=== PATIENT | female | born 1950 | race Caucasian/White ===

== ENCOUNTER 2019-01-14 08:40 | Inpatient (IN) | payer OTHER ==
[2019-01-14 09:07] VITALS: BMI 23.8
--- NOTE | 2019-01-14 09:48 | HP ---
COWS - Scale Resting Pulse: 0= [place] 80 or Below Sweatin= Chills/Flushing Restless Observation: 1= Difficult to Sit Still Pupil Size: 0= Normal to Room Light Bone or Joint Aches: 2= Severe Diffuse Aches Runny Nose/ Eye Tearin= Nasal Congestion GI Upset > 30mins: 2= Nausea/Diarrhea Tremor Observation: 2= Slight Tremor Visible Yawning Observation: 1= 1-2x During Session Anxiety or Irritability: 2=Irritable/Anxious Goose Flesh Skin: 0=Smooth Skin COWS Score: 12 CIWA Score - Admission Criteria OASAS Guidelines: Admission for Medically Managed Detox: Requires at least one of the followin. CIWA greater than 12 2. Seizures within the past 24 hours 3. Delirium tremens within the past 24 hours 4. Hallucinations within the past 24 hours 5. Acute intervention needed for co occurring medical disorder 6. Acute intervention needed for co occurring psychiatric disorder 7. Severe withdrawal that cannot be handled at a lower level of care (continued vomiting, continued diarrhea, abnormal vital signs) requiring intravenous medication and/or fluids 8. Admitting History and Physical - Smoking History Smoking history: Current every day smoker Have you smoked in the past 12 months: Yes Aproximately how many cigarettes per day: 10 Admission ROS S - HPI Chief Complaint: I need help Allergies/Adverse Reactions: Allergies Allergy/AdvReac Type Severity Reaction Status Date / Time Penicillins Allergy Severe Verified 01/12/19 17:23 Pencillin AdvReac Rash Uncoded 01/14/19 08:58 History of Present Illness: 68 year old woman with heroin use presents for detox. Patient presented for detox at this facility 2 days ago but did not meet criteria for admission. As per patient, she could not handle the withdrawal symptoms after she got home so she resumed using. She has declared the intention of correction abstinence and wants to go to rehab. Patient reports previous methadone maintenance several years ago but got off because she didn't want to be on methadone any longer. Her longest period of sobriety is 10 years, relapsed last year, denies ever overdosing. Exam Limitations: No Limitations - Ebola screening Have you traveled outside of the country in the last 21 days: No Have you had contact with anyone from an Ebola affected area: No Have you been sick,other than usual withdrawal symptoms: No Do you have a fever: No - Review of Systems Constitutional: Chills, Loss of Appetite, Changes in sleep (chronic insomnia), Unintentional Wgt. Loss (10lbs weight loss over the past few months) EENT: reports: Nose Congestion, Difficulty Swallowing (sometimes) Respiratory: reports: No Symptoms reported Cardiac: reports: Lightheadedness (sometimes), Palpitations (sometimes) GI: reports: Poor Appetite, Abdominal cramping : reports: No Symptoms Reported Musculoskeletal: reports: Back Pain, Joint Pain (OA related), Muscle Pain Integumentary: reports: Bruising (due to anticoagulation use) Neuro: reports: Numbness, Tremors Endocrine: reports: No Symptoms Reported Hematology: reports: Easy Bruising Psychiatric: reports: Anxious, Depressed Other Systems: Reviewed and Negative Patient History - Patient Medical History Hx Anemia: No Hx Asthma: No Hx Chronic Obstructive Pulmonary Disease (COPD): No Hx Cancer: Yes (breast cancer 1992 (s/p lumpectomy, radiation)) Hx Cardiac Disorders: Yes (PR, s/p cardiac stents July 2017) Hx Congestive Heart Failure: No Hx Hypertension: Yes Hx Hypercholesterolemia: Yes Hx Pacemaker: No HX Cerebrovascular Accident: Yes (TIA) Hx Seizures: No Hx Dementia: No Hx Diabetes: No Hx Gastrointestinal Disorders: No Hx Liver Disease: No Hx Genitourinary Disorders: No Hx Sexually Transmitted Disorders: No Hx Renal Disease (ESRD): No Hx Thyroid Disease: No Hx Human Immunodeficiency Virus (HIV): No Hx Hepatitis C: No Hx Depression: Yes (related to heroin use, never seen a psychiatrist) Hx Suicide Attempt: No Hx Bipolar Disorder: No Hx Schizophrenia: No - Patient Surgical History Hx Breast Surgery: Yes (lumpectomy and removal of lymph nodes) Hx Orthopedic Surgery: Yes (R hip replacement and revisions) Hx Hysterectomy: No Anesthesia Reaction: No - PPD History Previous Implant?: Yes Documented Results: Negative w/o proof Implanted On Prior R Admission?: No PPD to be Administered?: Yes - Smoking Cessation Smoking history: Current every day smoker Have you smoked in the past 12 months: Yes Aproximately how many cigarettes per day: 10 Hx Chewing Tobacco Use: No Initiated information on smoking cessation: Yes 'Breaking Loose' booklet given: 01/14/19 - Substance & Tx. History Hx Alcohol Use: No Hx Substance Use: Yes Substance Use Type: Heroin Hx Substance Use Treatment: No - Substances abused Heroin Substance route: Inhalation Frequency: Daily Amount used: 10 bags Age of first use: 23 Date of last use: 01/13/19 Admission Physical Exam [facility] - Vital Signs Vital Signs: Vital Signs - 24 hr 01/14/19 08:58 Temperature 97.1 F L Pulse Rate 68 Respiratory 18 Rate Blood Pressure 173/71 H - Physical General Appearance: Yes: No Apparent Distress HEENTM: Yes: EOMI, Hearing grossly Normal, Normal ENT Inspection, Normocephalic , Normal Voice, NUVIA, Pharynx Normal Respiratory: Yes: Chest Non-Tender, Lungs Clear, Normal Breath Sounds, No Respiratory Distress, No Accessory Muscle Use Neck: Yes: No masses,lesions,Nodules, Supple Breast: Yes: Breast Exam Deferred Cardiology: Yes: Regular Rhythm, Regular Rate, S1, S2 Abdominal: Yes: Normal Bowel Sounds, Non Tender, Soft Genitourinary: Yes: Within Normal Limits Back: Yes: Normal Inspection Musculoskeletal: Yes: Back pain, Muscle weakness, Other (unsteady gait) Extremities: Yes: Tremors Neurological: Yes: detacher II-XII NML intact, Fully Oriented, Alert, Normal Mood/ Affect, Normal Response, Numbness (following breast surgery) Integumentary: Yes: Petechiae Lymphatic: Yes: Within Normal Limits - Diagnostic (1) Uncomplicated opioid dependence Current Visit: Yes Status: Acute (2) Osteoarthritis Current Visit: Yes Status: Chronic Qualifiers: Osteoarthritis location: multiple joints (3) Anxiety Current Visit: Yes Status: Chronic (4) HLD (hyperlipidemia) Current Visit: Yes Status: Chronic Qualifiers: Hyperlipidemia type: pure hypercholesterolemia Qualified Code(s): E78.00 - Pure hypercholesterolemia, unspecified; E78.0 - Pure hypercholesterolemia (5) HTN (hypertension) Current Visit: Yes Status: Chronic Qualifiers: Hypertension type: essential hypertension Qualified Code(s): I10 - Essential (primary) hypertension (6) Presence of stent in coronary artery Current Visit: Yes Status: Chronic (7) Nicotine dependence Current Visit: Yes Status: Acute Qualifiers: Nicotine product type: cigarettes Substance use status: uncomplicated Qualified Code(s): F17.210 - Nicotine dependence, cigarettes, uncomplicated (8) Neuropathy Current Visit: Yes Status: Chronic Cleared for Admission [facility] - Detox or Rehab [facility] Level of Care: Medically Managed Detox Regimen/Protocol: Methadone Claeared for Rehab Admission: No Breathalyzer - Breathalyzer Breathalyzer: 0 Urine Drug Screen - Test Device Lot number: [id number] Expiration date: 08/26/20 - Control Is test valid?: Yes - Results Drug screen NEGATIVE: No Urine drug screen results: MOP-Opiates, OXY-Oxycodone, BZO-Benzodiazepines Inpatient Rehab Admission - Rehab Decision to Admit Inpatient rehab admission?: No
[2019-01-14] MEDS ORDERED: MENTHOL/PHENOL 1 EACH UD MM PRN (10:07)
[2019-01-14] MEDS ORDERED: cloNIDine HCL 0.1 MG TABLET PO PRN (10:07)
[2019-01-14] MEDS ORDERED: MAGNESIUM HYDROX 2400MG/30ML ORAL SUSPENSION 30 ML CUP PO PRN (10:07)
[2019-01-14] MEDS ORDERED: METHADONE HCL 10 MG TABLET (FOR DETOX USE ONLY) PO ONE (10:07)
[2019-01-14] MEDS ORDERED: NICOTINE POLACRILEX 2 MG GUM BUC PRN (10:07)
[2019-01-14] MEDS ORDERED: BISMUTH SUBSALICYLATE 524 MG/30 ML UD PO PRN (10:07)
[2019-01-14] MEDS ORDERED: MELATONIN 5 MG TABLETS PO PRN (10:07)
[2019-01-14] MEDS ORDERED: MAG HYDROX/AL HYDROX/SIMETH 30 ML UNIT-DOSE CUP PO PRN (10:07)
[2019-01-14] MEDS ORDERED: MAGNESIUM CITRATE 300 ML BOTTLE PO PRN (10:07)
[2019-01-14] MEDS ORDERED: ACETAMINOPHEN 325 MG TABLET (FP) PO PRN ×2 (10:07)
[2019-01-14] MEDS ORDERED: NALOXONE HCL 0.4 MG/ML VIAL IM PRN (10:07)
[2019-01-14] MEDS ORDERED: METOPROLOL TARTRATE 25 MG TABLET (FP) PO SCH (10:15)
[2019-01-14 11:28] LABS: HEMATOCRIT 36.9 % (32.4-45.2); HEMOGLOBIN 12.5 GM/dL (10.7-15.3); MCH 28.8 pg (25.7-33.7); MEAN CELL VOLUME 84.7 fl (80-96); PLATELET COUNT 218 K/MM3 (134-434); RBC 4.36 M/mm3 (3.60-5.2); WHITE BLOOD COUNT 4.6 K/mm3 (4.0-10.0)
[2019-01-14 11:37] LABS: ALBUMIN 3.5 g/dl (3.4-5.0); BILIRUBIN,TOTAL 0.4 mg/dL (0.2-1); BLOOD UREA NITROGEN 10.8 mg/dL (7-18); CALCIUM 9.2 mg/dL (8.5-10.1); CREATININE 0.7 mg/dL (0.55-1.3)
[2019-01-14] MEDS ORDERED: FLU VACCINE QUAD 60 MCG/0.5 ML (MDV 19-20) IM ONE (12:00)
[2019-01-14] MEDS: NICOTINE 14 MG/24 HOURS TOPICAL PATCH TD SCH (13:00)
[2019-01-14] MEDS: ASPIRIN 81 MG CHEWABLE TABLETS PO SCH (13:00)
[2019-01-14] MEDS: ROSUVASTATIN CA 5 MG TABLET (FP) PO SCH (13:55)
[2019-01-14] MEDS: RAMIPRIL 5 MG CAPSULE (FP) PO SCH (13:55)
[2019-01-14] MEDS: TICAGRELOR 60 MG TABLET PO SCH ×2 (13:55→22:25)
--- NOTE | 2019-01-14 20:13 | EKG ---
Test Reason : Blood Pressure : / mmHG Vent. Rate : 060 BPM Atrial Rate : 060 BPM P-R Int : 168 ms QRS Dur : 090 ms QT Int : 410 ms P-R-T Axes : 067 008 032 degrees QTc Int : 410 ms NORMAL SINUS RHYTHM NORMAL ECG NO PREVIOUS ECGS AVAILABLE Confirmed by MD YADI, RENETTA ([id number]) on 01/14/2019 8:13:23 PM Referred By: Confirmed By:RENETTA GRULLON MD
[2019-01-14] MEDS: METOPROLOL TARTRATE 25 MG TABLET (FP) PO SCH (22:26)
[2019-01-14] MEDS: METHOCARBAMOL 500 MG TABLET PO PRN (22:26)
[2019-01-14] MEDS: GABAPENTIN 100 MG CAPSULE (FP) PO SCH (22:26)
[2019-01-14] MEDS: THIAMINE HCL 100 MG TABLET (FP) PO SCH (22:27)
[2019-01-15] MEDS: PRENATAL VITAMINS W/ FOLIC ACID TABLET (FP) PO SCH (09:25)
[2019-01-15] MEDS: ASPIRIN 81 MG CHEWABLE TABLETS PO SCH (09:25)
[2019-01-15] MEDS: RAMIPRIL 5 MG CAPSULE (FP) PO SCH (09:25)
[2019-01-15] MEDS ORDERED: METHADONE HCL 5 MG TABLET (FOR DETOX USE ONLY) PO ONE (10:00)
[2019-01-15] MEDS: TICAGRELOR 60 MG TABLET PO SCH ×2 (10:14→21:54)
[2019-01-15] MEDS: NICOTINE 14 MG/24 HOURS TOPICAL PATCH TD SCH (10:14)
[2019-01-15] MEDS: ROSUVASTATIN CA 5 MG TABLET (FP) PO SCH (10:14)
[2019-01-15] MEDS: METOPROLOL TARTRATE 25 MG TABLET (FP) PO SCH ×2 (10:14→21:54)
[2019-01-15] MEDS: hydrOXYzine PAMOATE 50 MG CAPSULE (FP) PO PRN ×2 (10:27→21:55)
--- NOTE | 2019-01-15 16:15 | PN ---
[facility] COWS - Scale Resting Pulse: 0= [place] 80 or Below Sweatin= Chills/Flushing Restless Observation: 3= Extraneous Movement Pupil Size: 0= Normal to Room Light Bone or Joint Aches: 2= Severe Diffuse Aches Runny Nose/ Eye Tearin= Runny Nose/Eyes GI Upset > 30mins: 2= Nausea/Diarrhea Tremor Observation of Outstretched Hands: 2= Slight Tremor Visible Yawning Observation: 0= None Anxiety or Irritability: 2=Irritable/Anxious Goose Flesh Skin: 0=Smooth Skin COWS Score: 14 BHS Progress Note (SOAP) Subjective: Body aches, chils, stomachache, nausea, anxious; vomited last night. Patient reported that her methadone protocol is too low and that she was doing 30 bags of heroin daily. As per her admission note, she reported using 10 bags/day. Patient agreed to take vistaril prn which was ordered. Objective: 01/15/19 16:11 Last Vital Signs Temp Pulse Resp BP Pulse Ox 97.7 F 68 18 189/90 H 01/15/19 09:41 01/15/19 09:41 01/15/19 09:41 01/15/19 09:41 Elevated b/p noted (has htn, on med) Laboratory Tests 01/14/19 01/14/19 10:20 10:20 WBC 4.6 RBC 4.36 Hgb 12.5 Hct 36.9 MCV 84.7 MCH 28.8 MCHC 34.0 RDW 14.0 Plt Count 218 MPV 9.0 Sodium 139 Potassium 4.0 Chloride 105 Carbon Dioxide 29 Anion Gap 6 L BUN 10.8 Creatinine 0.7 Est GFR (CKD-EPI)AfAm 103.18 Est GFR (CKD-EPI)NonAf 89.03 Random Glucose 107 H Calcium 9.2 Total Bilirubin 0.4 AST 38 H ALT 28 Alkaline Phosphatase 123 H Total Protein 8.0 Albumin 3.5 Labs reviewed Assessment: 01/15/19 16:13 Withdrawal sxs Noted with elevated b/p Plan: Continue detox Encouraged PO water intake Vistaril 50mg PO q6hr prn withdrawal sxs HTN: continue metoprolol and ramipril, monitor b/p, educate on low sodium diet
[2019-01-15] MEDS: THIAMINE HCL 100 MG TABLET (FP) PO SCH (21:54)
[2019-01-15] MEDS: GABAPENTIN 100 MG CAPSULE (FP) PO SCH (21:54)
[2019-01-16] MEDS ORDERED: METHADONE HCL 10 MG TABLET (FOR DETOX USE ONLY) PO ONE (10:00)
[2019-01-16] MEDS: METOPROLOL TARTRATE 25 MG TABLET (FP) PO SCH ×2 (10:54→22:23)
[2019-01-16] MEDS: ASPIRIN 81 MG CHEWABLE TABLETS PO SCH (10:54)
[2019-01-16] MEDS: TICAGRELOR 60 MG TABLET PO SCH ×2 (10:54→22:23)
[2019-01-16] MEDS: RAMIPRIL 5 MG CAPSULE (FP) PO SCH (10:54)
[2019-01-16] MEDS: ROSUVASTATIN CA 5 MG TABLET (FP) PO SCH (10:54)
[2019-01-16] MEDS: NICOTINE 14 MG/24 HOURS TOPICAL PATCH TD SCH (10:55)
[2019-01-16] MEDS: METHOCARBAMOL 500 MG TABLET PO PRN (10:56)
[2019-01-16] MEDS: PRENATAL VITAMINS W/ FOLIC ACID TABLET (FP) PO SCH (10:59)
[2019-01-16] MEDS ORDERED: cloNIDine HCL 0.1 MG TABLET PO SCH (11:45)
--- NOTE | 2019-01-16 12:01 | PN ---
[facility] COWS - Scale Resting Pulse: 0= [place] 80 or Below Sweatin= Chills/Flushing Restless Observation: 1= Difficult to Sit Still Pupil Size: 0= Normal to Room Light Bone or Joint Aches: 2= Severe Diffuse Aches Runny Nose/ Eye Tearin= None GI Upset > 30mins: 1= Stomach Cramp Tremor Observation of Outstretched Hands: 1= Tremor Traver, Not Seen Yawning Observation: 1= 1-2x During Session Anxiety or Irritability: 2=Irritable/Anxious Goose Flesh Skin: 0=Smooth Skin COWS Score: 9 BHS Progress Note (SOAP) Subjective: sweat body aches interrupted sleep shakes Objective: 01/16/19 11:58 Vital Signs Temperature 98.1 F 01/16/19 09:41 Pulse Rate 67 01/16/19 09:41 Respiratory Rate 16 01/16/19 09:41 Blood Pressure 170/73 01/16/19 09:41 O2 Sat by Pulse Oximetry (%) Laboratory Tests 01/14/19 01/14/19 01/15/19 10:20 10:20 05:40 WBC 4.6 RBC 4.36 Hgb 12.5 Hct 36.9 MCV 84.7 MCH 28.8 MCHC 34.0 RDW 14.0 Plt Count 218 MPV 9.0 Sodium 139 Potassium 4.0 Chloride 105 Carbon Dioxide 29 Anion Gap 6 L BUN 10.8 Creatinine 0.7 Est GFR (CKD-EPI)AfAm 103.18 Est GFR (CKD-EPI)NonAf 89.03 Random Glucose 107 H Calcium 9.2 Total Bilirubin 0.4 AST 38 H ALT 28 Alkaline Phosphatase 123 H Total Protein 8.0 Albumin 3.5 RPR Titer Nonreactive labs noted aaox3 ambulating no acute distress Assessment: 01/16/19 11:59 withdrawals unable to provided clonidine because of the severity with medication interaction with other HTN medication Plan: continue detox d/c in am
[2019-01-16] MEDS: hydrOXYzine PAMOATE 50 MG CAPSULE (FP) PO PRN (17:39)
[2019-01-16] MEDS: GABAPENTIN 100 MG CAPSULE (FP) PO SCH (22:22)
[2019-01-16] MEDS: THIAMINE HCL 100 MG TABLET (FP) PO SCH (22:23)
[2019-01-17] MEDS ORDERED: METHADONE HCL 5 MG TABLET (FOR DETOX USE ONLY) PO ONE (06:00)
[2019-01-17] MEDS: hydrOXYzine PAMOATE 50 MG CAPSULE (FP) PO PRN (06:25)
--- NOTE | 2019-01-17 09:39 | DS ---
[facility] Detox Discharge Summary Admission Date: 01/14/19 Discharge Date: 01/17/19 - History Present History: Opioid Dependence - Physical Exam Results Vital Signs: Vital Signs Temperature 98.2 F 01/17/19 06:35 Pulse Rate 63 01/17/19 06:35 Respiratory Rate 16 01/17/19 06:35 Blood Pressure 175/76 H 01/17/19 06:35 O2 Sat by Pulse Oximetry (%) Pertinent Admission Physical Exam Findings: pt arrived in withdrawals sx Vital Signs Temperature 98.2 F 01/17/19 06:35 Pulse Rate 63 01/17/19 06:35 Respiratory Rate 16 01/17/19 06:35 Blood Pressure 175/76 H 01/17/19 06:35 O2 Sat by Pulse Oximetry (%) Laboratory Tests 01/14/19 01/14/19 01/15/19 10:20 10:20 05:40 WBC 4.6 RBC 4.36 Hgb 12.5 Hct 36.9 MCV 84.7 MCH 28.8 MCHC 34.0 RDW 14.0 Plt Count 218 MPV 9.0 Sodium 139 Potassium 4.0 Chloride 105 Carbon Dioxide 29 Anion Gap 6 L BUN 10.8 Creatinine 0.7 Est GFR (CKD-EPI)AfAm 103.18 Est GFR (CKD-EPI)NonAf 89.03 Random Glucose 107 H Calcium 9.2 Total Bilirubin 0.4 AST 38 H ALT 28 Alkaline Phosphatase 123 H Total Protein 8.0 Albumin 3.5 RPR Titer Nonreactive today pt is aaox3 ambulating no acute distress no s/s of withdrawals - Treatment Hospital Course: Detox Protocol Followed, Detoxed Safely, Responded well, Discharged Condition Good, Rehab Referral Accepted Patient has Accepted a Rehab Referral to: pt declined rehab; referral provided - Medication Discharge Medications: Ambulatory Orders Aspirin [ASA -] 81 mg PO DAILY 01/12/19 Brilinta 60 mg PO BID 01/12/19 Gabapentin [Neurontin -] 100 mg PO HS 01/12/19 Hydrochlorothiazide 12.5 mg PO ASDIR PRN 01/12/19 Metoprolol Tartrate 25 mg PO DAILY 01/12/19 Ramipril 10 mg PO DAILY 01/12/19 Rosuvastatin [Crestor -] 5 mg PO DAILY 01/12/19 - Diagnosis (1) Nicotine dependence Current Visit: Yes Status: Chronic Qualifiers: Nicotine product type: cigarettes Substance use status: uncomplicated Qualified Code(s): F17.210 - Nicotine dependence, cigarettes, uncomplicated (2) Uncomplicated opioid dependence Current Visit: Yes Status: Chronic (3) Anxiety Current Visit: Yes Status: Chronic (4) HLD (hyperlipidemia) Current Visit: Yes Status: Chronic Qualifiers: Hyperlipidemia type: pure hypercholesterolemia Qualified Code(s): E78.00 - Pure hypercholesterolemia, unspecified; E78.0 - Pure hypercholesterolemia (5) HTN (hypertension) Current Visit: Yes Status: Chronic Qualifiers: Hypertension type: essential hypertension Qualified Code(s): I10 - Essential (primary) hypertension (6) Neuropathy Current Visit: Yes Status: Chronic (7) Osteoarthritis Current Visit: Yes Status: Chronic Qualifiers: Osteoarthritis location: multiple joints (8) Presence of stent in coronary artery Current Visit: Yes Status: Chronic (9) History of right hip replacement Current Visit: No Status: Acute (10) Hx of breast cancer Current Visit: No Status: Acute (11) Hx of breast lump removal Current Visit: No Status: Acute (12) Sjogren's disease Current Visit: No Status: Acute - AMA Did Patient Leave Against Medical Advice: No
[2019-01-17] MEDS: METOPROLOL TARTRATE 25 MG TABLET (FP) PO SCH (09:49)
[2019-01-17] MEDS: ASPIRIN 81 MG CHEWABLE TABLETS PO SCH (09:50)
[2019-01-17 09:59] VITALS: BP 162/77; PULSE 75; TEMP 97.9
== END 2019-01-17 10:20 | disposition home or self-care (01) | DRG 897 ==
LOC: YASAS 08:40 → Y6N 12:19
PROVIDERS: ADMIT Allergy & Immunology; ATTEND Allergy & Immunology
PROC: HZ2ZZZZ Detoxification Services for Substance Abuse Treatment (ICD-10-PCS; principal; 2019-01-14)
DX: F11.23 Opioid dependence with withdrawal (principal); F17.210 Nicotine dependence, cigarettes, uncomplicated; F41.9 Anxiety disorder, unspecified; I10 Essential (primary) hypertension; E78.5 Hyperlipidemia, unspecified; G62.9 Polyneuropathy, unspecified; M19.90 Unspecified osteoarthritis, unspecified site; I25.2 Old myocardial infarction; M35.00 Sjogren syndrome, unspecified; Z86.73 Personal history of transient ischemic attack (TIA), and cerebral infarction without residual deficits; Z88.0 Allergy status to penicillin; Z95.5 Presence of coronary angioplasty implant and graft; Z96.641 Presence of right artificial hip joint; Z85.3 Personal history of malignant neoplasm of breast
CPT/HCPCS: 36415; 80053; 85027; 86593; 93005; 93010; G0008; J0735; Q2036